=== PATIENT | female | born 1980 ===

== ENCOUNTER 2023-10-28 09:34 | Outpatient (CLI) | payer OTHER | END 2023-10-28 09:43 | disposition home or self-care (01) | LOC: RAD 09:34 | PROVIDERS: ATTEND Physical Medicine & Rehabilitation | DX: M79.641 Pain in right hand (principal) ==

== ENCOUNTER 2024-04-02 10:10 | Outpatient (CLI) | payer OTHER | END 2024-04-02 10:20 | disposition home or self-care (01) | LOC: RAD 10:10 | PROVIDERS: ATTEND Physical Medicine & Rehabilitation | DX: M54.2 Cervicalgia (principal) ==